=== PATIENT | female | born 1980 | race Caucasian/White ===

== ENCOUNTER 2017-05-19 05:21 | Emergency (ER) | payer OTHER ==
[~2017-05-19] VITALS: Ht 162.6 cm; Wt 158.8 kg
[~2017-05-19 05:21] MED LIST: BENTYL 20 MG TA20 M1 PO; PRINIVIL10 MG PO
[2017-05-19] MEDS ORDERED: METFORMIN HCL500 MG PO (05:32)
[2017-05-19] MEDS ORDERED: MOBIC7.5 MG PO (05:32)
[2017-05-19] MEDS ORDERED: AMITRIPTYLINE H25 M2 (05:32)
[2017-05-19] MEDS ORDERED: LEVOTHYROXINE0.2 M1 PO (05:33)
[2017-05-19] MEDS ORDERED: OXYBUTYNIN 5 MG5 M2 PO (05:33)
[2017-05-19] MEDS ORDERED: CYMBALTA20 MG (05:34)
[2017-05-19 06:59] LABS: URINE BILIRUBIN NEGATIVE (Negative); URINE BLOOD NEGATIVE (Negative); URINE COLOR YELLOW; URINE GLUCOSE-RANDOM* 3+ (Negative); URINE KETONES NEGATIVE (Negative); URINE LEUKOCYTES-REFLEX NEGATIVE (Negative); URINE PROTEIN (DIPSTICK) NEGATIVE (Negative); URINE UROBILINOGEN 0.2 E.U./dl (0.2-1.0)
[2017-05-19 07:05] LABS: ABSOLUTE NEUTROPHILS 6.7 thou/uL (1.4-8.2); BASOPHILS 1.2 % (0.0-2.0); EOSINOPHILS 1.8 % (0.0-3.0); HEMATOCRIT 40.7 % (37.0-47.0); HEMOGLOBIN 13.7 gm/dL (12.0-15.0); LYMPHOCYTES 28.3 % (24.0-44.0); MCH 30.5 pg (26.0-34.0); MCHC 33.7 g/dL (28.0-37.0); MCV 90.4 fL (80.0-100.0); MONOCYTES 4.5 % (1.0-8.0); PLATELET COUNT 237 thou/uL (150-400); POLYS 64.2 % (36.0-66.0); RDW 15.1 % (10.5-14.5); WBC 10.5 thou/uL (4.0-11.0)
[2017-05-19 07:19] LABS: MANUAL DIFF NO
[2017-05-19 07:30] LABS: CALCIUM 8.8 mg/dL (8.5-10.1); CREATININE 0.8 mg/dL (0.6-1.0)
[2017-05-19 07:34] LABS: ALBUMIN 3.2 g/dL (3.4-5.0); TOTAL BILIRUBIN 0.2 mg/dL (<0.1-1.0); TOTAL PROTEIN 7.2 g/dL (6.4-8.2)
[2017-05-19] MEDS ORDERED: NORCO 7.5-3251 EACH PO (09:54)
[2017-05-19] MEDS ORDERED: SENOKOT-S1 TA1 PO (09:54)
[2017-05-19 10:13] VITALS: BP 117/62
== END 2017-05-19 10:15 | disposition home or self-care (01) ==
LOC: ER 05:21
PROVIDERS: Emergency Medicine
DX: K43.9 Ventral hernia without obstruction or gangrene (principal); I10 Essential (primary) hypertension; E03.9 Hypothyroidism, unspecified; E66.9 Obesity, unspecified; E11.9 Type 2 diabetes mellitus without complications; M19.90 Unspecified osteoarthritis, unspecified site; Z88.5 Allergy status to narcotic agent

== ENCOUNTER 2017-05-31 05:43 | Day surgery (SDC) | payer OTHER ==
[~2017-05-31] VITALS: Ht 162.6 cm; Wt 115.7 kg
--- NOTE | ~2017-05-31 | EKG ---
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
--- NOTE | ~2017-05-31 | S ---
[facility] [place] [address] SURGICAL PATH RPT PROCEDURE Name: THORNTONASHLYN Room #: DEP [facility]..#: [id number] Admission: 05/31/17 Date of : 78 Discharge: 05/31/17 Report #: [id number] Path Case #: [id number] PATHOLOGY REPORT COLLECTION DATE: 05/31/2017 RECEIVED DATE: 05/31/2017 SUBMITTING PHYS: Dr. Dejon Barriga OTHER PHYS: SPECIMEN(S) RECEIVED: A.Hernia sac and contents * * * * * * * * * * * * FINAL DIAGNOSIS: Fibrovascular and fibroadipose tissue,"hernia sac and contents", repair: - Reactive changes and congestion compatible with a hernia sac. PATHOLOGIST: Miesha Amaro M.D. REPORT ELECTRONICALLY SIGNED BY: Miesha Amaro M.D. DATE/TIME: 06/02/2017 14:19 * * * * * * * * * * * * GROSS PATHOLOGY: Received in formalin labeled "[place], hernia sac and contents," are multiple pieces of fibroadipose/fibromembranous tissue measuring 11.2 x 6.1 x 2.9 cm in aggregate dimensions. No nodules or lesions are identified. 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 (ISAIAS; 06/01/2017) CLINICAL HISTORY: Incisional ventral hernia INITIAL CPT CODE(S): A; 53106 Professional services performed by [facility] at [facility] [address] [facility] [address] [place] [address] Technical services performed by [facility] at [address] [place] [address], [address], [place] [address]. [facility] [address] [place] [address] SURGICAL PATH RPT PROCEDURE Name: ASHLYN THORNTON Room #: DEP [facility] [place]#: [id number] Admission: 05/31/17 Date of : 78 Discharge: 05/31/17 Report #: [id number] Path Case #: [id number] [facility] [address] [address] PHONE: [phone] DIRECTOR: Earl Graves M.D. * * * END OF REPORT * * *
[~2017-05-31 05:43] MED LIST changes: +AMITRIPTYLINE H25 M2 PO; +CYMBALTA20 MG; +FLONASE 0.05%50 MCG NASAL; +LEVOTHYROXINE0.2 M1 PO; +METFORMIN HCL500 MG PO; +MOBIC7.5 MG PO; +NORCO 7.5-3251 EACH PO; +OXYBUTYNIN 5 MG5 M2 PO; +RANITIDINE HCL300 MG PO; +SENOKOT-S1 TA1 PO; +VITAMIN D1000 UNIT PO
[2017-05-31 08:30] VITALS: BP 123/74
[2017-05-31] MEDS ORDERED: HYDROCODONE-AP1 EAC6 PO (11:34)
[2017-05-31] MEDS ORDERED: SENNA-S TABLET1 EACH PO (11:34)
[2017-05-31] MEDS ORDERED: NEURONTIN 300300 M1 PO (11:34)
[2017-05-31 11:54] VITALS: BP 123/74
== END 2017-05-31 13:00 | disposition home or self-care (01) ==
LOC: TBA 05:43 → OR 05:43
DX: K43.0 Incisional hernia with obstruction, without gangrene (principal); I10 Essential (primary) hypertension; E03.9 Hypothyroidism, unspecified; M79.7 Fibromyalgia; M19.90 Unspecified osteoarthritis, unspecified site; G47.33 Obstructive sleep apnea (adult) (pediatric); E66.01 Morbid (severe) obesity due to excess calories; K21.9 Gastro-esophageal reflux disease without esophagitis; F32.89 Other specified depressive episodes; F41.8 Other specified anxiety disorders; Z87.891 Personal history of nicotine dependence; Z90.49 Acquired absence of other specified parts of digestive tract; Z68.41 Body mass index [BMI] 40.0-44.9, adult; Z98.890 Other specified postprocedural states; Z79.899 Other long term (current) drug therapy; Z88.8 Allergy status to other drugs, medicaments and biological substances
CPT/HCPCS: 50010; 50101; 50249; 50386; 50555; 50558; 50962; 50980; 50984; 52265; 53307; 54022; 54118; 56462; 56525; 56526; 57092; 62110; 62900; 70005